=== PATIENT | female | born 1990 | race Caucasian/White ===

== ENCOUNTER 2019-01-17 04:56 | Emergency (ER) | payer SELFPAY ==
[~2019-01-17] VITALS: Ht 160 cm; Wt 63.6 kg
[2019-01-17] MEDS ORDERED: CYCLOBENZAPRINE HCL 10 MG TABLET PO ONE (06:15)
[2019-01-17] MEDS ORDERED: KETOROLAC TROMETHAMINE 60 MG/2 ML VIAL IM ONE (06:15)
[2019-01-17 08:07] VITALS: BP 122/74
== END 2019-01-17 08:08 | disposition home or self-care (01) ==
LOC: EMS 05:01
DX: M43.6 Torticollis (principal)
CPT/HCPCS: 81025; 96372; 99283; J1885

== ENCOUNTER 2022-12-28 10:33 | Emergency (ER) | payer OTHER ==
[~2022-12-28] VITALS: Ht 165.1 cm; Wt 90.9 kg
[2022-12-28] MEDS ORDERED: ALBU18HF12 IH (10:40)
[2022-12-28 11:20] VITALS: TEMP 97.8
[2022-12-28 12:00] VITALS: BP 136/82; PULSE 76; RESP 18
[2022-12-28] MEDS ORDERED: IBUP-1492 PO (12:51)
== END 2022-12-28 13:38 | disposition home or self-care (01) ==
LOC: EMS 10:33
DX: S93.401A Sprain of unspecified ligament of right ankle, initial encounter (principal); J45.909 Unspecified asthma, uncomplicated; X50.1XXA Overexertion from prolonged static or awkward postures, initial encounter; Y93.89 Activity, other specified; Y92.098 Other place in other non-institutional residence as the place of occurrence of the external cause; Y99.8 Other external cause status
CPT/HCPCS: 99283